=== PATIENT | male | born 1975 | race Caucasian/White ===

== ENCOUNTER 2024-01-24 10:25 | Inpatient (IN) | payer OTHER ==
[2024-01-24 10:45] VITALS: BMI 42.7
[2024-01-24] MEDS ORDERED: MAG HYDROX/AL HYDROX/SIMETH 30 ML UNIT-DOSE CUP PO PRN (11:29)
[2024-01-24] MEDS ORDERED: NALOXONE HCL (KLOXXADO) 8 MG SPRAY NS PRN (11:29)
[2024-01-24] MEDS ORDERED: NALOXONE HCL 0.4 MG/ML VIAL IM PRN (11:29)
[2024-01-24] MEDS ORDERED: POLYETHYLENE GLYCOL (HEALTHYLAX) 3350 17 GM PACKET PO PRN (11:29)
[2024-01-24] MEDS ORDERED: MAGNESIUM HYDROX 2400MG/30ML ORAL SUSPENSION 30 ML CUP PO PRN (11:29)
[2024-01-24] MEDS ORDERED: DICYCLOMINE HCL 10 MG CAPSULE PO PRN (11:29)
[2024-01-24] MEDS ORDERED: BENZONATATE 200 MG CAPSULE PO PRN (11:29)
[2024-01-24] MEDS ORDERED: IBUPROFEN 600 MG TABLET (FP) PO PRN (11:29)
[2024-01-24] MEDS ORDERED: guaiFENesin 600 MG TABLET.ER (FP) PO PRN (11:29)
[2024-01-24] MEDS ORDERED: BENZOCAINE/MENTHOL (CHLORASEPTIC ) LOZENGE MM PRN (11:29)
[2024-01-24] MEDS ORDERED: IBUPROFEN 400 MG TABLET (FP) PO PRN (11:29)
[2024-01-24] MEDS ORDERED: ONDANSETRON *ODT* 4 MG TABLET ONE (11:38)
[2024-01-24] MEDS: PRENATAL VITAMINS W/ FOLIC ACID TABLET (FP) PO SCH (11:53)
[2024-01-24] MEDS: TRIMETHOBENZAMIDE HCL 200MG/2ML INJ IM ONE (11:54)
[2024-01-24] MEDS: chlordiazePOXIDE HCL 25 MG CAPSULE PO PRN (12:10)
[2024-01-24] MEDS ORDERED: chlordiazePOXIDE HCL 25 MG CAPSULE ONE (12:24)
[2024-01-24] MEDS ORDERED: hydrOXYzine PAMOATE 25 MG CAPSULE (FP) PO ONE (12:25)
[2024-01-24] MEDS: NALTREXONE HCL 50 MG TABLET PO SCH (13:30)
[2024-01-24] MEDS: METHOCARBAMOL 500 MG TABLET PO PRN (13:30)
[2024-01-24] MEDS: chlordiazePOXIDE HCL 25 MG CAPSULE PO SCH (16:45)
[2024-01-24] MEDS: ACETAMINOPHEN 325 MG TABLET (FP) PO PRN (16:48)
[2024-01-24] MEDS: ONDANSETRON *ODT* 4 MG TABLET SL PRN (18:45)
[2024-01-24] MEDS: THIAMINE 100 MG TABLET PO SCH (22:32)
[2024-01-24] MEDS: MELATONIN 5 MG TABLETS PO SCH (22:32)
[2024-01-24] MEDS: KETOCONAZOLE 2% CREAM - 60GM TUBE TP SCH (22:59)
[2024-01-25] MEDS: hydrOXYzine PAMOATE 25 MG CAPSULE (FP) PO PRN (01:38)
[2024-01-25] MEDS: FAMOTIDINE 20 MG TABLET PO SCH (11:42)
[2024-01-25 14:49] LABS: HEMATOCRIT 45.5 % (35.4-49); HEMOGLOBIN 15.7 GM/dL (11.7-16.9); MCH 30.9 pg (25.7-33.7); MCHC 34.6 g/dl (32.0-35.9); MEAN CELL VOLUME 89.3 fl (80-96); PLATELET COUNT 207 10^3/uL (134-434); RBC 5.09 M/mm3 (4.00-5.60); RDW 13.7 % (11.9-15.9); WHITE BLOOD COUNT 5.4 K/mm3 (4.0-10.0)
[2024-01-25 14:58] LABS: POTASSIUM 4.2 mmol/L (3.5-5.1)
[2024-01-25 15:05] LABS: CREATININE 0.8 mg/dL (0.55-1.3)
[2024-01-25 15:07] LABS: TOT PROT 8.5 g/dl (6.4-8.2)
[2024-01-25 15:10] LABS: ALBUMIN 4.1 g/dl (3.4-5.0); CALCIUM 8.5 mg/dL (8.5-10.1)
[2024-01-25 15:12] LABS: BLOOD UREA NITROGEN 10.6 mg/dL (7-18)
[2024-01-25] MEDS: LOPERAMIDE HCL 2 MG CAPSULE PO PRN (22:39)
[2024-01-26] MEDS: chlordiazePOXIDE HCL 25 MG CAPSULE PO SCH (05:45)
[2024-01-26] MEDS: BISMUTH SUBSALICYLATE 262 MG/15 ML BTL PO PRN (06:08)
[2024-01-26 12:25] VITALS: BP 126/77; PULSE 84; RESP 18; TEMP 98.1
[2024-01-26] MEDS: LACTULOSE 20 GM/30 ML UDC (FOR ORAL USE ONLY) PO SCH (13:47)
[2024-01-27] MEDS ORDERED: chlordiazePOXIDE HCL 10 MG CAPSULE PO PRN
[2024-01-27] MEDS ORDERED: chlordiazePOXIDE HCL 10 MG CAPSULE PO SCH (05:00)
[2024-01-28] MEDS ORDERED: chlordiazePOXIDE HCL 10 MG CAPSULE PO SCH (05:00)
[2024-01-29] MEDS ORDERED: chlordiazePOXIDE HCL 10 MG CAPSULE PO ONE (05:00)
== END 2024-01-26 14:01 | disposition left against medical advice (07) | DRG 770 ==
LOC: YASAS 10:25 → Y3N 11:49
PROVIDERS: ADMIT Allergy & Immunology; ATTEND Surgery
PROC: HZ2ZZZZ Detoxification Services for Substance Abuse Treatment (ICD-10-PCS; principal; 2024-01-24)
DX: F10.230 Alcohol dependence with withdrawal, uncomplicated (principal); F17.210 Nicotine dependence, cigarettes, uncomplicated; K21.9 Gastro-esophageal reflux disease without esophagitis; E72.20 Disorder of urea cycle metabolism, unspecified; B35.9 Dermatophytosis, unspecified
CPT/HCPCS: 36415; 80053; 80305; 80307; 82140; 85027; 86780; 93005; 93010; Q0162